=== PATIENT | male | born 1995 | race Caucasian/White ===

== ENCOUNTER → 2017-05-24 | Outpatient (CLI) | payer OTHER | LOC: BHSO 13:48 | DX: F90.0 Attention-deficit hyperactivity disorder, predominantly inattentive type (principal) | CPT/HCPCS: 90791-AI ==

== ENCOUNTER → 2017-10-09 | Outpatient (CLI) | payer OTHER | LOC: BHSO 09:41 | DX: F90.0 Attention-deficit hyperactivity disorder, predominantly inattentive type (principal) ==

== ENCOUNTER → 2018-03-06 | Outpatient (CLI) | payer OTHER | LOC: BHSO 11:17 | DX: F90.0 Attention-deficit hyperactivity disorder, predominantly inattentive type (principal) | CPT/HCPCS: G0463 ==

== ENCOUNTER → 2018-09-04 | Outpatient (CLI) | payer OTHER | LOC: BHSO 10:47 | DX: F90.0 Attention-deficit hyperactivity disorder, predominantly inattentive type (principal) | CPT/HCPCS: G0463 ==

== ENCOUNTER → 2018-11-04 | Outpatient (CLI) | payer OTHER | LOC: BHSO 09:58 | DX: F90.0 Attention-deficit hyperactivity disorder, predominantly inattentive type (principal) | CPT/HCPCS: G0463 ==

== ENCOUNTER → 2019-01-22 | Outpatient (CLI) | payer OTHER | LOC: BHSO 09:00 | DX: F90.0 Attention-deficit hyperactivity disorder, predominantly inattentive type (principal) | CPT/HCPCS: G0463 ==

== ENCOUNTER → 2019-08-22 | Outpatient (CLI) | payer OTHER | LOC: BHSO 14:59 | DX: F90.0 Attention-deficit hyperactivity disorder, predominantly inattentive type (principal) | CPT/HCPCS: G0463 ==

== ENCOUNTER → 2020-06-02 | Outpatient (CLI) | payer OTHER | LOC: BHSO 14:41 | DX: F90.0 Attention-deficit hyperactivity disorder, predominantly inattentive type (principal) | CPT/HCPCS: G0463 ==

== ENCOUNTER → 2020-06-24 | Outpatient (CLI) | payer OTHER | LOC: BHSO 10:26 | DX: F33.41 Major depressive disorder, recurrent, in partial remission (principal) | CPT/HCPCS: G0463 ==

== ENCOUNTER → 2020-09-21 | Outpatient (CLI) | payer OTHER | LOC: BHSO 11:02 | DX: F90.0 Attention-deficit hyperactivity disorder, predominantly inattentive type (principal) | CPT/HCPCS: G0463 ==